=== PATIENT | female | born 1935 | race Caucasian/White ===

== ENCOUNTER 2021-02-09 15:07 | Inpatient (IN) | payer MEDICARE ==
[~2021-02-09] VITALS: Ht 162.6 cm; Wt 49.9 kg
--- NOTE | 2021-02-09 15:20 | NUR ---
received pt 86 yrs female came from home c/o syncopy and found in floor at 1435 by day care assistant no weekness pt not remmber what heapen pt now awake now resting
--- NOTE | 2021-02-09 15:25 | NUR ---
seen by DR. HAYDEE golden with pt pt awake and alert no weekneess
[2021-02-09 16:11] LABS: BASOPHILS % (AUTO) 0.5 % (0.0-2.0); EOSINOPHILS % (AUTO) 0.7 % (0.0-6.0); HEMATOCRIT 44 % (33-45); HEMOGLOBIN 14.3 g/dL (11.5-14.8); LYMPHOCYTES # (AUTO) 1.2 K/uL (0.8-4.8); LYMPHOCYTES % (AUTO) 15.5 % (20.0-44.0); MEAN CORPUSCULAR HGB CONC 32 g/dl (31.0-36.0); MEAN CORPUSCULAR VOLUME 89 fL (82-100); MONOCYTES # (AUTO) 0.4 K/uL (0.1-1.30); MONOCYTES % (AUTO) 4.8 % (2.0-12.0); NEUTROPHILS # (AUTO) 5.9 K/uL (1.8-8.9); NEUTROPHILS % (AUTO) 78.5 % (43.0-81.0); PLATELET COUNT (AUTO) 139 K/uL (150-450); RED BLOOD CELL COUNT(AUTO) 4.98 MIL/uL (4.0-5.2); WHITE BLOOD COUNT (AUTO) 7.5 K/uL (4.3-11.0)
--- NOTE | 2021-02-09 16:11 | NUR ---
MOVE SHEET SUBMITTED AND CALLED FOR TELE BED.
[2021-02-09] MEDS ORDERED: RALO60TA PO (16:26)
[2021-02-09] MEDS ORDERED: MYRBETRIQ PO (16:26)
[2021-02-09] MEDS ORDERED: LEVO75TA7 PO (16:26)
[2021-02-09] MEDS ORDERED: SERT50TA PO (16:26)
[2021-02-09] MEDS ORDERED: ATOR10TA PO (16:26)
[2021-02-09] MEDS ORDERED: DONE10TA44 PO (16:26)
[2021-02-09 16:27] LABS: CALCIUM, SERUM 8.3 mg/dL (8.5-10.1); CARBON DIOXIDE 30 mmol/L (21-32); CHLORIDE 106 mmol/L (98-107); CREATININE 1.1 mg/dL (0.6-1.3); GLUCOSE 124 mg/dL (74-106); POTASSIUM 3.6 mmol/L (3.5-5.1); SODIUM SERUM 141 mmol/L (136-145); UREA NITROGEN, BLOOD 18 mg/dL (7-18)
--- NOTE | 2021-02-09 16:28 | NUR ---
room [facility]
--- NOTE | 2021-02-09 16:29 | NUR ---
GOT BED 304
[2021-02-09 16:34] LABS: ALANINE AMINOTRANSFERASE 16 U/L (12-78); ALBUMIN 3.6 g/dL (3.4-5.0); ALKALINE PHOSPHATASE 82 U/L (46-116); ASPARTATE AMINOTRANSFERASE 11 U/L (15-37); BILIRUBIN,DIRECT 0.1 mg/dL (0.0-0.2); BILIRUBIN,TOTAL 0.4 mg/dL (0.2-1.0); TOTAL PROTEIN, SERUM 6.7 g/dL (6.4-8.2)
--- NOTE | 2021-02-09 17:30 | NUR ---
plan to admit pt inpatent no weekness coved swab sent to lab pt condtion dsable no change vs kendra vergara for room to be admited
--- NOTE | 2021-02-09 17:43 | NUR ---
REPORT GIVEN TO LUIZA RANGEL
[2021-02-09] MEDS ORDERED: ZOLPIDEM TARTRATE 5 MG TABLET PO PRN (19:00)
[2021-02-09] MEDS ORDERED: ONDANSETRON HCL/PF 4 MG/2 ML VIAL IVP PRN (19:00)
[2021-02-09] MEDS ORDERED: ACETAMINOPHEN 325 MG TABLET PO PRN (19:00)
[2021-02-09] MEDS ORDERED: Z GUARD REMEDY 2 OZ OINT TP PRN (19:00)
[2021-02-09] MEDS ORDERED: MAG HYDROX/AL HYDROX/SIMETH 30 ML UDC PO PRN (19:00)
[2021-02-09] MEDS ORDERED: MAGNESIUM HYDROXIDE 30 ML UDC PO PRN (19:00)
[2021-02-09 20:00] VITALS: BP 151/56
--- NOTE | 2021-02-09 20:00 | NUR ---
RN NOTES: -PER ENDORSEMENT PATIENT WAS BROUGHT IN FROM ER TO [facility] AT 1830 DUE TO SYNCOPAL ATTACK, CXR DONE(-), CT HEAD DONE PENDING RESULT, ALL LABS WNL, IV HEPLOCK ON LAC G#20, PATIENT IS STABLE. -NEW ADMIT 86 Y.O. FEMALE FROM HOME, BROUGHT IN BY [facility] DUE TO SYNCOPAL ATTACK S/P FALL, PER PATIENT HER SUPERVISOR DELIVERY DEPARTMENT IS THE ONE WHO CALLED THE 911, A/0X2-3 WITH PERIODS OF FORGETFULNESS, CONVERSANT AND VERY PLEASANT PERSONALITY,ORIENTED TO UNIT AND STAFF,ABLE TO STAND AND WALK WITH ASSISTANCE SHE CLAIMED.INSTRUCT HOW TO USE THE CALL LIGHT IF SHE WANT TO GO TO BATHROOM. -ABLE TO DO ACTIVE RANGE OF MOTION WITHOUT ANY RESISTANCE OR DIFFICULTY, BUE AND BLE WERE WITHIN NORMAL RANGE, ABLE TO DO FLEXION AND EXTENSION WITHOUT PAIN OR DISCOMFORT, PUPILS BOTH REACTIVE TO LIGHT AND ACCOMMODATION, NO BUMP ON THE HEAD.SHE CLAIMED SHE FELL DOWN ON HER KITCHEN.NO SOB, NO CHEST DISCOMFORT, SHE HAS MILD PAIN ON THE NECK AREA. -BODY ASSESSMENT DONE: 1)OLD SURGICAL SITE: RLQ (SHE SAID SHE HAD APPENDECTOMY BEFORE) 2)OLD SCAB ON THE LEFT KNEE THAT PEEL OFF WITH REDNESS [id number] 3)LEFT ELBOW SKIN DISCOLORATION SECONDARY TO HER FALL TODAY --PATIENT CLAIMED SHE RECEIVED COVID VACCINE--PFIZER X 2 DOSES, SHE SAID SHE HAD PNA VACCINE BUT UNABLE TO RECALL WHEN, SHE CLAIMED ALSO SHE HAD FLU VACCINE,WILL F/U WITH CAREGIVER HER VACCINATION CARD TOMORROW.
--- NOTE | 2021-02-09 20:05 | NUR ---
RN NOTES: ADDITIONAL ADMISSION NOTES: --PATIENT HAS PACEMAKER ON THE MICHELLE, SHE WEAR 2 HEARING AID, NO DENTURES, UNABLE TO RECALL PAST MEDICAL HISTORY WELL REGARDING HIS PARENTS, SHE JUST REMEMBER HER FATHER IN OLD AGE AGE AND MOTHER DUE TO CANCER (UNABLE TO RECALL WHAT KIND).
--- NOTE | 2021-02-09 20:18 | NUR ---
RN NOTES: WHILE DOING BODY ASSESSMENT, OFFERED SNACKS AND SHE VERBALIZED SHE HAS MILD PAIN ON THE NECK AREA, SHE SAID"MAYBE THIS WAS DURING THE TRANSFER IN THE AMBULANCE", OFFERED PAIN MEDICATION, SHE AGREED TO TAKE, PRN GIVEN , NON PHARMACOLOGIC INTERVENTION RENDERED, DIM LIT THE ROOM, OPEN TV AND PLAY RELAXING MUSIC, THEN GIVEN WARM BLANKET.
--- NOTE | 2021-02-09 22:19 | NUR ---
RN NOTES: STILL AWAKE, WATCHING A MOVIE, CALLS AND NEEDS ATTENDED, GIVEN ANOTHER WARM BLAKET, SHE WAS VERY HAPPY, ASKED IF SHE STILL HAVE PAIN SHE SAID, NO MORE PAIN, ON TELE-MONITOR RATE:62 A-PACING.
--- NOTE | 2021-02-09 23:55 | NUR ---
RN NOTES: 2ND PAINT ROLLER COVERS SUPERVISOR CAME FOR BLOOD EXTRACTION, PATIENT IS HARD STICK, SHE WAS CRYING WHILE CONSERVATION SPECIALIST TRY TO EXTRACT HER BLOOD.TRY TO PACIFY PATIENT. Addendum: 02/09/21 at 2356 by LORENZO WINN RN ADDED NOTES; WRONG ENTRY OF CHARTING.
[2021-02-10] VITALS: BP 126/75
[2021-02-10 04:00] VITALS: BP 146/62
[2021-02-10 05:00] VITALS: BP 163/79
[2021-02-10 06:24] LABS: BASOPHILS % (AUTO) 0.3 % (0.0-2.0); EOSINOPHILS % (AUTO) 1.3 % (0.0-6.0); HEMATOCRIT 38 % (33-45); HEMOGLOBIN 12.9 g/dL (11.5-14.8); LYMPHOCYTES # (AUTO) 2.2 K/uL (0.8-4.8); LYMPHOCYTES % (AUTO) 30.2 % (20.0-44.0); MEAN CORPUSCULAR HGB CONC 34 g/dl (31.0-36.0); MEAN CORPUSCULAR VOLUME 87 fL (82-100); MONOCYTES # (AUTO) 0.5 K/uL (0.1-1.30); MONOCYTES % (AUTO) 7.3 % (2.0-12.0); NEUTROPHILS # (AUTO) 4.4 K/uL (1.8-8.9); NEUTROPHILS % (AUTO) 60.9 % (43.0-81.0); PLATELET COUNT (AUTO) 127 K/uL (150-450); RED BLOOD CELL COUNT(AUTO) 4.34 MIL/uL (4.0-5.2); WHITE BLOOD COUNT (AUTO) 7.2 K/uL (4.3-11.0)
--- NOTE | 2021-02-10 06:34 | NUR ---
RN NOTES --ASLEEP IN THE NIGHT, AWAKEN AT 0445, ORTHOSTATIC BP CHECKED: LYING BP--163/79 AL--60 SITTING BP--148/79 AL-60 STANDING BP- 152/82 AL-61 -COOPERATIVE,NO PAIN OR DISCOMFORT, ABLE TO AMBULATE GOING TO THE BATHROOM WITH ASSIST. HAD BM, CLEAN AND CHANGE.
--- NOTE | 2021-02-10 06:50 | NUR ---
RN NOTES: PATIENT RESTING COMFORTABLY IN HER BED, AWAITING FOR BREAKFAST, NO OTHER COMPLAINTS, SHE JUST WANT SOME OF HER PERSONAL STAFF TO BE BROUGHT IN HOSPITAL SO THAT SHE HAS MORE CLOTHES TO WEAR. --FOR LABS, FOR CARDIO CONSULT, ENDORSED FOR CONTINUITY OF CARE.
--- NOTE | 2021-02-10 07:35 | NUR ---
ORTHOSTATIC BP: CHECKED AT 0430 LYING BP-163/79 MD-60 SITTING BP- 148/79 MD-60 STANDING BP- 152/82 MD-81
[2021-02-10 07:39] LABS: CREATININE 0.9 mg/dL (0.6-1.3); MAGNESIUM 2.1 mg/dL (1.8-2.4); PHOSPHORUS 4.2 mg/dL (2.5-4.9); POTASSIUM 3.5 mmol/L (3.5-5.1)
[2021-02-10 07:47] LABS: CALCIUM, SERUM 8.1 mg/dL (8.5-10.1)
[2021-02-10 07:53] LABS: THYROID STIMULATING HORMONE 0.755 uIU/mL (0.358-3.74)
[2021-02-10 08:00] VITALS: BP 144/81
[2021-02-10] MEDS: PANTOPRAZOLE 40 MG TABLET.DR PO SCH (08:21)
[2021-02-10] MEDS ORDERED: IV NS 0.9% 1,000 ML IV PRN (09:30)
[2021-02-10] MEDS ORDERED: Medication Not On Formulary EA ([Myrbetriq] 50 MG) PO SCH (09:30)
[2021-02-10] MEDS: LEVOTHYROXINE SODIUM 75 MCG TABLET PO SCH (10:07)
[2021-02-10] MEDS: ENOXAPARIN SODIUM 40 MG/0.4 ML DISP.SYRIN SQ SCH (10:07)
[2021-02-10] MEDS: RALOXIFENE 60 MG TABLET PO SCH (10:33)
[2021-02-10 16:00] VITALS: BP 131/58
--- NOTE | 2021-02-10 19:30 | NUR ---
COMBATANT SWIMMER NOTES RECEIVED ON BED A/O X3-4,WATCHING TV PROGRAM,BREATHING REGULAR,NOT IN ANY FORM OF DISTRESS,SALINE LOCK LEFT AC INTACT AND PATENT.DENIES CHEST DISCOMFORTS.AMBULATE WITH ASSIST,ECHO-65% EF.AC PACING ON TELE MONITOR.FALL PRECAUTION OBSERVED,BED ON LOWEST POSITION AND LOCKED CALL LIGHT IN REACH,NEEDS ANTICIPATED.
--- NOTE | 2021-02-10 19:32 | NUR ---
TELE/RN CLOSING NOTES PATIENT IN BED, ALERT AND ORIENTED X3, ABLE TO MAKE NEEDS KNOWN. STABLE ON ROOM AIR. ON TELEMONITOR WITH READING OF A-PACING 60. NO DISTRESS/DISCOMFORTS NOTED AT THIS TIME. IV ACCESS ON LEFT AC #20G IS INTACT AND PATENT ON SALINE LOCK. PATIENT IS AMBULATORY WITH ASSIST. ALL NEEDS ARE MET. SAFETY PRECAUTIONS IN PLACED: BED LOCKED ON LOWEST POSITION, SIDE RAILS UPX2, CALL LIGHT AND TABLE WITHIN REACH. WILL ENDORSE TO THE NEXT SHIFT FOR KAREN.
[2021-02-10 20:00] VITALS: BP 143/61
--- NOTE | 2021-02-10 21:30 | NUR ---
ELECTRICIAN RESEARCH NOTES DUE PO MEDS GIVEN,TAKEN WELL,NEGATIVE FOR ASPIRATION
[2021-02-10] MEDS ORDERED: DONEPEZIL 5 MG TABLET PO SCH (22:00)
[2021-02-10] MEDS ORDERED: ATORVASTATIN 10 MG TABLET PO SCH (22:00)
[2021-02-11] VITALS: BP 157/74
[2021-02-11 04:00] VITALS: BP 146/62
[2021-02-11 06:53] LABS: BASOPHILS % (AUTO) 0.5 % (0.0-2.0); HEMATOCRIT 38 % (33-45); HEMOGLOBIN 12.8 g/dL (11.5-14.8); LYMPHOCYTES # (AUTO) 2.5 K/uL (0.8-4.8); LYMPHOCYTES % (AUTO) 42.3 % (20.0-44.0); MEAN CORPUSCULAR HGB CONC 34 g/dl (31.0-36.0); MEAN CORPUSCULAR VOLUME 87 fL (82-100); MONOCYTES # (AUTO) 0.4 K/uL (0.1-1.30); NEUTROPHILS # (AUTO) 2.9 K/uL (1.8-8.9); NEUTROPHILS % (AUTO) 48.2 % (43.0-81.0); PLATELET COUNT (AUTO) 126 K/uL (150-450); RED BLOOD CELL COUNT(AUTO) 4.33 MIL/uL (4.0-5.2)
[2021-02-11 07:10] LABS: ALANINE AMINOTRANSFERASE 12 U/L (12-78); ALBUMIN 2.9 g/dL (3.4-5.0); ALKALINE PHOSPHATASE 67 U/L (46-116); ASPARTATE AMINOTRANSFERASE 5 U/L (15-37); BILIRUBIN,TOTAL 0.4 mg/dL (0.2-1.0); CALCIUM, SERUM 8.3 mg/dL (8.5-10.1); CARBON DIOXIDE 30 mmol/L (21-32); CHLORIDE 108 mmol/L (98-107); CREATININE 0.9 mg/dL (0.6-1.3); GLUCOSE 87 mg/dL (74-106); MAGNESIUM 2.1 mg/dL (1.8-2.4); PHOSPHORUS 3.7 mg/dL (2.5-4.9); POTASSIUM 3.5 mmol/L (3.5-5.1); SODIUM SERUM 142 mmol/L (136-145); TOTAL PROTEIN, SERUM 5.9 g/dL (6.4-8.2); UREA NITROGEN, BLOOD 15 mg/dL (7-18)
--- NOTE | 2021-02-11 07:15 | NUR ---
DRESS DESIGNER OPENING NOTES RECEIVED PATIENT IN BED, ALERT AND ORIENTED X3, ABLE TO MAKE NEEDS KNOWN. STABLE ON ROOM AIR. ON TELEMONITOR WITH READING OF A-PACING 60. NO DISTRESS/DISCOMFORTS NOTED AT THIS TIME. IV ACCESS ON LEFT AC #20G IS INTACT AND PATENT ON SALINE LOCK. PATIENT IS AMBULATORY WITH ASSIST. SAFETY PRECAUTIONS IN PLACED: BED LOCKED ON LOWEST POSITION, SIDE RAILS UPX2, CALL LIGHT AND TABLE WITHIN REACH. WILL CONTINUE TO MONITOR PATIENT.
--- NOTE | 2021-02-11 07:18 | NUR ---
NON DESTRUCTIVE TESTER NOTES SLEEP WELL AT NIGHT.NO FALL NO INJURY.NO CHEST PAIN.IN NO ACUTE DISTRESS.
[2021-02-11 08:00] VITALS: BP 181/77
[2021-02-11] MEDS: ENOXAPARIN SODIUM 40 MG/0.4 ML DISP.SYRIN SQ SCH (08:38)
[2021-02-11] MEDS: LEVOTHYROXINE SODIUM 75 MCG TABLET PO SCH (08:46)
[2021-02-11] MEDS: PANTOPRAZOLE 40 MG TABLET.DR PO SCH (08:46)
[2021-02-11] MEDS: RALOXIFENE 60 MG TABLET PO SCH (08:48)
[2021-02-11] MEDS ORDERED: SERTRALINE HCL 25 MG TABLET PO SCH (09:00)
--- NOTE | 2021-02-11 11:10 | NUR ---
GASTROENTEROLOGY PROFESSOR NOTE PATIENT SEEN BY DR. REYES WITH ORDERS FOR DISCHARGE. HEALTH TEACHING DONE REGARDING DISCHARGE. PATIENT VERBALIZED UNDERSTANDING AND APPRECIAITION,. WILL CONTINUE TO MONITOR PATIENT.
--- NOTE | 2021-02-11 15:40 | NUR ---
ABATTOIR SUPERVISOR NOTE PATIENT DISCHARGED ORDERED IN STABLE CONDITION. PATIENT'S IV ACCESS REMOVED AND COVERED WITH DRESSING, TOLERATED WELL. ID BAND REMOVED WELL. PATIENT IN STABLE CONDITION. ACCOMPANIED TO DOWNSTAIRS LOBBY ON A WHEELCHAIR. DISCHARGED WITH MEDICALLY STABLE CONDITION. ENDORSED ACCORDINGLY.
== END 2021-02-11 15:37 | disposition home or self-care (01) | DRG 312 ==
LOC: ER 15:15 → TELE 18:00 → MED 02-11 10:11
PROVIDERS: ADMIT Student in an Organized Health Care Education/Training Program; ATTEND Student in an Organized Health Care Education/Training Program
DX: I95.1 Orthostatic hypotension (principal); N17.9 Acute kidney failure, unspecified; E03.9 Hypothyroidism, unspecified; D69.6 Thrombocytopenia, unspecified; N32.81 Overactive bladder; Z20.822 Contact with and (suspected) exposure to COVID-19; Z95.0 Presence of cardiac pacemaker; Z79.890 Hormone replacement therapy; F03.90 Unspecified dementia, unspecified severity, without behavioral disturbance, psychotic disturbance, mood disturbance, and anxiety; G89.29 Other chronic pain; Z79.899 Other long term (current) drug therapy; Z86.79 Personal history of other diseases of the circulatory system
CPT/HCPCS: 36415; 70450-TC; 71045-TC; 72125-TC; 73502; 80048-TC; 80053-TC; 80061-TC; 80076-TC; 82962-TC; 83735-TC; 84100-TC; 84443-TC; 84484-TC; 85025-TC; 87081-TC; 93307-TC; 97116-TC; 97530-TC; C9803; G0378; J1650